=== PATIENT | male | born 2000 | race Caucasian/White ===

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

== ENCOUNTER 2020-03-25 19:14 | Emergency (ER) | payer OTHER ==
[~2020-03-25] VITALS: Ht 170.2 cm; Wt 90.7 kg
[2020-03-25 19:25] VITALS: BP 150/82
--- NOTE | 2020-03-25 19:25 | NUR ---
TO TENT # 02 AMBULATORY
--- NOTE | 2020-03-25 19:33 | NUR ---
SEEN AND EXAMINED BY MAXINE WITH ORDERS AND CARRIED OUT
[2020-03-25] MEDS ORDERED: ACETAMINOPHEN EXTRA STRENGTH 500 MG TAB PO ONE (19:40)
--- NOTE | 2020-03-25 19:50 | NUR ---
MEDICATED PER [facility] ORDER, PATIENT TOLERATED WELL.
[2020-03-25 20:10] VITALS: BP 150/82
--- NOTE | 2020-03-25 20:10 | NUR ---
Patient discharged with v/s stable. Written and verbal after care instructions given and explained. Patient alert, oriented and verbalized understanding of instructions. Ambulatory with steady gait. All questions addressed prior to discharge. ID band removed. Patient advised to follow up with PMD. Rx of ZOFRAN 4 MG, IBUPROFEN 400MG given. Patient educated on indication of medication including possible reaction and side effects. Opportunity to ask questions provided and answered.
== END 2020-03-25 20:20 | disposition home or self-care (01) ==
LOC: MED 19:14
DX: R50.9 Fever, unspecified (principal); R10.84 Generalized abdominal pain; Z20.828 Contact with and (suspected) exposure to other viral communicable diseases
CPT/HCPCS: 99283

== ENCOUNTER 2023-08-31 10:29 | Emergency (ER) | payer OTHER ==
[~2023-08-31] VITALS: Ht 172.7 cm; Wt 98.0 kg
[2023-08-31 10:42] VITALS: BP 135/72; PULSE 96; RESP 18; TEMP 97.8; O2SAT 97
[2023-08-31] MEDS: KETOROLAC 30 MG/ML VIAL IM ONE (12:32)
[2023-08-31] MEDS: BACITRACIN OINT 500 UNITS/GM PKT TP ONE (12:32)
[2023-08-31] MEDS ORDERED: IBUP-2213 PO (14:07)
[2023-08-31] MEDS ORDERED: ACET-10509 PO (14:07)
[2023-08-31] MEDS ORDERED: BACI-418 TP (14:07)
[2023-08-31 14:41] VITALS: BP 143/93; PULSE 98; RESP 16; TEMP 98.1; O2SAT 100
== END 2023-08-31 14:40 | disposition home or self-care (01) ==
LOC: MED 10:29
DX: S92.332A Displaced fracture of third metatarsal bone, left foot, initial encounter for closed fracture (principal); S92.345A Nondisplaced fracture of fourth metatarsal bone, left foot, initial encounter for closed fracture; Z79.1 Long term (current) use of non-steroidal anti-inflammatories (NSAID); Z79.2 Long term (current) use of antibiotics; V89.2XXA Person injured in unspecified motor-vehicle accident, traffic, initial encounter; Y93.89 Activity, other specified; Y92.89 Other specified places as the place of occurrence of the external cause; Y99.8 Other external cause status
CPT/HCPCS: 29515; 72100; 73610; 73630; 73650; 96372; 99284; J1885